=== PATIENT | female | born 1970 | race Caucasian/White ===

== ENCOUNTER 2019-01-01 08:39 | Emergency (ER) | payer OTHER | END 2019-01-01 12:05 | disposition home or self-care (01) | LOC: FTE 08:39 | DX: E04.1 Nontoxic single thyroid nodule (principal); I10 Essential (primary) hypertension | CPT/HCPCS: 36415; 70490; 76536; 80053; 81001; 81025; 84436; 84479; 85025; 87880; 99284-25 ==